=== PATIENT | male | born 1970 | race African-American/Black ===

== ENCOUNTER 2020-02-09 10:37 | Emergency (ER) | payer OTHER ==
[~2020-02-09] VITALS: Ht 175.3 cm; Wt 83.9 kg
[2020-02-09 11:52] VITALS: BP 108/70
--- NOTE | 2020-02-09 11:52 | NUR ---
Patient a/ox4, ambulatory with steady gait. Breathing even and unlabored, no sob noted. Patient discharged to home in stable condition. Written and verbal after care instructions given. Patient verbalizes understanding of instruction.
--- NOTE | 2020-02-09 11:53 | NUR ---
Discharged to PD.
== END 2020-02-09 11:53 ==
LOC: ER 10:43
DX: S10.83XA Contusion of other specified part of neck, initial encounter (principal); J45.909 Unspecified asthma, uncomplicated; Y04.8XXA Assault by other bodily force, initial encounter; Y93.89 Activity, other specified; Y92.488 Other paved roadways as the place of occurrence of the external cause; Y99.8 Other external cause status
CPT/HCPCS: 70490-TC